=== PATIENT | male | born 1950 | race Caucasian/White ===

== ENCOUNTER → 2018-11-09 12:47 | Outpatient (CLI) | payer MEDICARE, SELFPAY | PROVIDERS: Visit Provider Physician Assistant | DX: R21 Rash and other nonspecific skin eruption (principal) | CPT/HCPCS: 87070; 87075; 87077; 87147; 87186; 87205; 87210 ==

== ENCOUNTER → 2019-03-13 11:10 | Outpatient (CLI) | payer MEDICARE, SELFPAY ==
--- NOTE | 2019-03-13 | DI.RAD.S_ITS ---
PROCEDURE: XR CHEST 2V INDICATIONS: CHRONIC COUGH TECHNIQUE: 2 views of the chest were acquired. COMPARISON: None. FINDINGS: Surgical changes and devices: None. Lungs and pleura: Lungs are clear. No pleural effusions or pneumothorax. Mediastinum: Mediastinal contours are normal. Heart size is normal. Bones and chest wall: No suspicious bony abnormalities. Soft tissues appear unremarkable. IMPRESSION: No acute disease. Dictated by: Augusto Torres M.D. on 03/13/2019 at 16:31 Approved by: Augusto Torres M.D. on 03/13/2019 at 16:33
== END ==
PROVIDERS: Visit Provider Internal Medicine
DX: R05 Cough (principal)
CPT/HCPCS: 71046

== ENCOUNTER → 2019-03-28 14:22 | Outpatient (ROUT) | payer MEDICARE, SELFPAY ==
[2019-03-28 14:44] LABS: Add Manual Diff / Slide Review NO; Appearance Urine UA CLEAR; Basophils Absolute Auto 0 /uL (0-100); Basophils Percent Auto 0.5 % (0-2); Bilirubin Urine UA NEGATIVE (NEGATIVE); Color Urine UA YELLOW; Eosinophils Absolute Auto 100 /uL (0-450); Eosinophils Percent Auto 3.5 % (2-4); Glucose Urine UA NEGATIVE (Negative); Hematocrit 44.8 % (41-53); Hemoglobin 15.5 g/dL (13.5-17.5); Ketones Urine UA NEGATIVE (NEGATIVE); Leukocyte Esterase Urine UA NEGATIVE (NEGATIVE); Lymphocytes Absolute Auto 1600 /uL (1100-4500); Lymphocytes Percent Auto 41.4 % (25-40); Mean Corpuscular HGB Conc 34.6 % (30-36); Mean Corpuscular Hemoglobin 35.3 PG (26-34); Monocytes Absolute Auto 500 /uL (0-900); Monocytes Percent Auto 13.8 % (3-14); Neutrophils Absolute Auto 1600 /uL (1500-7000); Neutrophils Percent Auto 40.8 % (50-75); Nitrite Urine UA NEGATIVE (Negative); Occult Blood Urine UA NEGATIVE (Negative); Platelet Count 181 X10^3/uL (150-400); Protein Urine UA NEGATIVE (Negative); Red Blood Cell Count 4.39 X10^6/uL (4.5-5.9); Red Cell Distribution Width 13.4 % (11.6-14.8); Specific Gravity Urine UA 1.015 (1.000-1.035); Urobilinogen Urine UA 0.2 E.U./dL (0.2); White Blood Cell Count 3.9 X10^3/uL (4.5-11.0)
[2019-03-28 14:52] LABS: Alanine Aminotransferase 67 IU/L (21-72); Albumin 4.7 g/dL (3.5-5.0); Albumin Globulin Ratio 1.7 (1.0-2.8); Alkaline Phosphatase 48 U/L (38-126); Aspartate Aminotransferase 42 IU/L (17-59); BUN Creatinine Ratio 24.3 (6-22); Bilirubin Total 0.9 mg/dL (0.2-1.3); Blood Urea Nitrogen 17 mg/dL (9-20); Calcium 10.2 mg/dL (8.4-10.2); Carbon Dioxide 29 mmol/L (22-32); Chloride 102 mmol/L (98-107); Cholesterol 160 mg/dL (140-199); Creatine Kinase 204 U/L (55-170); Estimated Glomerular Filt Rate > 60.0 mL/min (>60); Globulin 2.8 g/dL (1.7-4.1); Glucose 111 mg/dL (80-110); HDL Cholesterol 51 mg/dL (40-60); HEMOLYSIS < 15 (0-50); LDL Cholesterol Calculated 99 mg/dL (<100); Potassium 4.6 mmol/L (3.4-5.1); Sodium 142 mmol/L (137-145); Total Protein 7.5 g/dL (6.3-8.2); Triglycerides 49 mg/dL (35-150); Uric Acid 8.1 mg/dL (3.5-8.5)
[2019-03-28 14:55] LABS: RBC Urine 0-1/HPF (0-5/HPF); WBC Urine 0-1/HPF (0-5/HPF)
[2019-03-28 14:56] LABS: Bacteria Urine Occasional (0-1); Culture Indicated Urine Cult Not Indicated
[2019-03-28 15:03] LABS: Erythrocyte Sedimentation Rate 1 MM/HR (0-15)
[2019-03-28 15:21] LABS: TSH w/ Reflex to FT4 2.68 uIU/mL (0.47-4.68)
[2019-03-31 14:53] LABS: PSA Total 3.75 ng/mL (< 4.01)
[2019-04-02 07:35] LABS: Aldolase 5.3 U/L (< 8.2)
== END ==
PROVIDERS: Visit Provider Internal Medicine
DX: R51 Headache (principal); R13.10 Dysphagia, unspecified; R03.0 Elevated blood-pressure reading, without diagnosis of hypertension; I48.92 Unspecified atrial flutter; R25.2 Cramp and spasm; K60.2 Anal fissure, unspecified; M1A.9XX0 Chronic gout, unspecified, without tophus (tophi); Z13.220 Encounter for screening for lipoid disorders; Z12.5 Encounter for screening for malignant neoplasm of prostate; E88.89 Other specified metabolic disorders; R39.11 Hesitancy of micturition
CPT/HCPCS: 80053; 80061; 81001; 82085; 82550; 84153; 84154; 84443; 84550; 85025; 85651

== ENCOUNTER → 2019-05-30 18:20 | Outpatient (ROUT) | payer MEDICARE, SELFPAY | PROVIDERS: Visit Provider Internal Medicine | DX: N48.1 Balanitis (principal) | CPT/HCPCS: 87070; 87075; 87205 ==

== ENCOUNTER → 2019-11-20 11:43 | Outpatient (CLI) | payer MEDICARE, SELFPAY ==
--- NOTE | 2019-11-20 | DI.RAD.S_ITS ---
PROCEDURE: XR HAND LT 2V INDICATIONS: PAIN IN LEFT HAND TECHNIQUE: 2 views of the hand(s) acquired. COMPARISON: None. FINDINGS: Bones: No fractures or dislocations. Carpal bones are normally aligned. No suspicious bony lesions. Flexion of the left little finger. First CMC and triscaphe joint degeneration. Diffuse interphalangeal degenerative spurring and sclerosis. Soft tissues: No suspicious soft tissue calcifications. IMPRESSION: Diffuse degenerative changes as above. Flexion of the left little finger Dictated by: Augusto Torres M.D. on 11/20/2019 at 14:59 Approved by: Augusto Torres M.D. on 11/20/2019 at 15:02
--- NOTE | 2019-11-20 | DI.RAD.S_ITS ---
PROCEDURE: XR HAND RT 2V INDICATIONS: PAIN IN LEFT HAND TECHNIQUE: 2 views of the hand(s) acquired. COMPARISON: None. FINDINGS: Bones: No fractures or dislocations. Carpal bones are normally aligned. No suspicious bony lesions. Scattered degenerative subchondral sclerosis and spurring. First CMC and triscaphe joint degeneration. Punctate non-specific jessika-articular calcification at the fifth MCP joint. Marginal lucency projecting at the PIP joint of the little finger. Soft tissues: No suspicious soft tissue calcifications. IMPRESSION: Diffuse degenerative changes as above Marginal lucencies project at the little finger PIP joint Dictated by: Augusto Torres M.D. on 11/20/2019 at 15:02 Approved by: Augusto Torres M.D. on 11/20/2019 at 15:04
[2019-11-20 12:03] LABS: Bacteria Urine None Seen; RBC Urine None Seen (0-5/HPF)
[2019-11-20 13:38] LABS: Add Manual Diff / Slide Review NO; Basophils Absolute Auto 0 /uL (0-100); Basophils Percent Auto 0.7 % (0-2); Eosinophils Absolute Auto 100 /uL (0-450); Eosinophils Percent Auto 1.2 % (2-4); Hematocrit 44.2 % (41-53); Hemoglobin 15.7 g/dL (13.5-17.5); Lymphocytes Absolute Auto 1100 /uL (1100-4500); Lymphocytes Percent Auto 22.7 % (25-40); Mean Corpuscular HGB Conc 35.5 % (30-36); Mean Corpuscular Hemoglobin 35.7 PG (26-34); Mean Corpuscular Volume 100.6 fL (80-100); Monocytes Absolute Auto 700 /uL (0-900); Monocytes Percent Auto 12.9 % (3-14); Neutrophils Absolute Auto 3200 /uL (1500-7000); Neutrophils Percent Auto 62.5 % (50-75); Platelet Count 135 X10^3/uL (150-400); Red Blood Cell Count 4.39 X10^6/uL (4.5-5.9); Red Cell Distribution Width 13.1 % (11.6-14.8); White Blood Cell Count 5.1 X10^3/uL (4.5-11.0)
[2019-11-20 13:41] LABS: Alanine Aminotransferase 181 IU/L (<50); Albumin 5.1 g/dL (3.5-5.0); Albumin Globulin Ratio 1.6 (1.0-2.8); Alkaline Phosphatase 61 U/L (38-126); Appearance Urine UA CLEAR; Aspartate Aminotransferase 126 IU/L (17-59); BUN Creatinine Ratio 31.3 (6-22); Bilirubin Total 1.2 mg/dL (0.2-1.3); Bilirubin Urine UA NEGATIVE (NEGATIVE); Blood Urea Nitrogen 21 mg/dL (9-20); Calcium 9.9 mg/dL (8.4-10.2); Carbon Dioxide 26 mmol/L (22-32); Chloride 99 mmol/L (98-107); Cholesterol 168 mg/dL (140-199); Color Urine UA YELLOW; Creatine Kinase 267 U/L (55-170); Estimated Glomerular Filt Rate > 60.0 mL/min (>60); Globulin 3.2 g/dL (1.7-4.1); Glucose 95 mg/dL (80-110); Glucose Urine UA NEGATIVE (Negative); HDL Cholesterol 50 mg/dL (40-60); HEMOLYSIS < 15 (0-50); Ketones Urine UA 1+ (NEGATIVE); LDL Cholesterol Calculated 106 mg/dL (<100); Leukocyte Esterase Urine UA NEGATIVE (NEGATIVE); Nitrite Urine UA NEGATIVE (Negative); Occult Blood Urine UA NEGATIVE (Negative); Potassium 4.2 mmol/L (3.4-5.1); Protein Urine UA NEGATIVE (Negative); Sodium 140 mmol/L (137-145); Specific Gravity Urine UA 1.025 (1.000-1.035); Total Protein 8.3 g/dL (6.3-8.2); Triglycerides 58 mg/dL (35-150); Uric Acid 10.5 mg/dL (3.5-8.5); Urobilinogen Urine UA 0.2 E.U./dL (0.2)
[2019-11-20 13:55] LABS: Culture Indicated Urine Cult Not Indicated; Mucus Urine 1+ (Negative); Squamous Epithelial Cell Urine 0-1 /HPF (0-5/HPF); WBC Urine 0-1/HPF (0-5/HPF)
[2019-11-20 14:03] LABS: D Dimer < 200 ng/mL (<230)
[2019-11-20 14:06] LABS: Erythrocyte Sedimentation Rate 4 MM/HR (0-15)
[2019-11-20 14:12] LABS: C-Reactive Protein Quant 0.6 mg/dL (<1.0)
[2019-11-20 14:41] LABS: TSH w/ Reflex to FT4 2.13 uIU/mL (0.47-4.68)
--- NOTE | 2019-11-20 16:05 | DI.US.S_ITS ---
PROCEDURE: US PERIP VENOUS UP EXTREM LT INDICATIONS: PAIN IN LEFT HAND/LEG TECHNIQUE: Real-time imaging, as well as color and pulse Doppler interrogation, was performed of the left upper extremity deep veins from the inferior neck to the antecubital fossa. COMPARISON: [facility], , [facility] VENOUS LOW EXTREM BI, 11/20/2019, 17:21. FINDINGS: The internal jugular vein, visualized portions of the subclavian vein, axillary, and brachial veins are free of intraluminal thrombus. Where physically possible, the veins are normally compressible. Color and pulse Doppler demonstrate normal intraluminal flow, with expected phasicity and pulsatility. Superficial venous thrombosis can be seen within a vein that is likely a basilic tributary. IMPRESSION: Negative for deep venous thrombosis. Mild superficial venous thrombosis seen. Note: Concordant preliminary findings called to the voicemail of Melissa Dyer by the motor and generator assembler upon the completion of the examination at 5:42 PM on November 20, 2019. Dictated by: Elroy Gutiérrez M.D. on 11/20/2019 at 16:57 Approved by: Elroy Gutiérrez M.D. on 11/20/2019 at 16:59
--- NOTE | 2019-11-20 16:05 | DI.US.S_ITS ---
PROCEDURE: US PERIP VENOUS LOW EXTREM BI INDICATIONS: PAIN IN LEFT HAND/LEG TECHNIQUE: Real-time imaging, as well as color and pulse Doppler interrogation, were performed of the deep veins of both legs from the inguinal ligament to the popliteal fossa. COMPARISON: [facility], , PERIP VENOUS UP EXTREM LT, 11/20/2019, 17:04. FINDINGS: Right: The common femoral, femoral and popliteal veins are normally compressible, and free of intraluminal thrombus. Color and pulse Doppler demonstrate normal phasic intravascular flow. There is normal augmentation response to distal compression maneuver. Left: The common femoral, femoral and popliteal veins are normally compressible, and free of intraluminal thrombus. Color and pulse Doppler demonstrate normal phasic intravascular flow. There is normal augmentation response to distal compression maneuver. IMPRESSION: Negative for deep venous thrombosis. Dictated by: Elroy Gutiérrez M.D. on 11/20/2019 at 16:59 Approved by: Elroy Gutiérrez M.D. on 11/20/2019 at 16:59
[2019-11-22 01:44] LABS: PSA Free % 35.9 % (.); PSA, Total 3.7 ng/mL (0.0-4.0)
== END ==
PROVIDERS: PCP Internal Medicine; Referring Provider Internal Medicine; Visit Provider Internal Medicine
DX: R25.2 Cramp and spasm (principal); M79.642 Pain in left hand; M79.604 Pain in right leg; M79.605 Pain in left leg
CPT/HCPCS: 73120; 80053; 80061; 81001; 82085; 82550; 84153; 84154; 84443; 84550; 85025; 85379; 85651; 86140; 93970; 93971

== ENCOUNTER → 2020-01-08 12:03 | Outpatient (CLI) | payer MEDICARE, SELFPAY ==
[2020-01-08 14:11] LABS: Alanine Aminotransferase 45 IU/L (<50); Albumin 4.9 g/dL (3.5-5.0); Albumin Globulin Ratio 1.6 (1.0-2.8); Alkaline Phosphatase 54 U/L (38-126); Aspartate Aminotransferase 36 IU/L (17-59); BUN Creatinine Ratio 34.9 (6-22); Blood Urea Nitrogen 30 mg/dL (9-20); Carbon Dioxide 28 mmol/L (22-32); Chloride 103 mmol/L (98-107); Creatine Kinase 130 U/L (55-170); Estimated Glomerular Filt Rate > 60.0 mL/min (>60); Gamma Glutamyl Transpeptidase 38 U/L (15-73); Glucose 109 mg/dL (80-110); HEMOLYSIS < 15 (0-50); Potassium 4.5 mmol/L (3.4-5.1); Sodium 140 mmol/L (137-145); Total Protein 7.9 g/dL (6.3-8.2); Uric Acid 10.4 mg/dL (3.5-8.5)
[2020-01-10 23:08] LABS: Aldolase 5.9 U/L (3.3-10.3)
== END ==
PROVIDERS: PCP Internal Medicine; Referring Provider Internal Medicine; Visit Provider Internal Medicine
DX: R74.9 Abnormal serum enzyme level, unspecified (principal); R74.0 Nonspecific elevation of levels of transaminase and lactic acid dehydrogenase [LDH]; M10.071 Idiopathic gout, right ankle and foot
CPT/HCPCS: 36415; 80053; 82085; 82550; 82977; 84550

== ENCOUNTER → 2020-02-22 12:22 | Outpatient (CLI) | payer MEDICARE, SELFPAY ==
--- NOTE | 2020-02-22 12:27 | DI.RAD.S_ITS ---
PROCEDURE: XR FOOT LT MIN 3V INDICATIONS: Lt foot pain TECHNIQUE: 3 views of the foot were acquired. COMPARISON: None. FINDINGS: Bones: No fractures or dislocations. No suspicious bony lesions. Soft tissues: No tibiotalar joint effusion. Achilles tendon appears normal. There appears to be soft tissue swelling over the medial aspect of the 1st metatarsal head, but there is no fracture or foreign body seen. IMPRESSION: Blunt trauma injury with swelling 1st MTP joint area, without fracture or foreign body seen. Dictated by: Chase Byrd M.D. on 02/22/2020 at 13:59 Approved by: Chase Byrd M.D. on 02/22/2020 at 13:59
== END ==
PROVIDERS: PCP Internal Medicine; Referring Provider Internal Medicine; Visit Provider Internal Medicine
DX: M79.672 Pain in left foot (principal); S99.922A Unspecified injury of left foot, initial encounter; M79.89 Other specified soft tissue disorders; W20.8XXA Other cause of strike by thrown, projected or falling object, initial encounter
CPT/HCPCS: 73630

== ENCOUNTER → 2020-04-08 10:28 | Outpatient (CLI) | payer MEDICARE, SELFPAY ==
[2020-04-08 12:55] LABS: BUN Creatinine Ratio 27.2 (6-22); Blood Urea Nitrogen 22 mg/dL (9-20); Calcium 9.8 mg/dL (8.4-10.2); Carbon Dioxide 27 mmol/L (22-32); Chloride 105 mmol/L (98-107); Estimated Glomerular Filt Rate > 60.0 mL/min (>60); Glucose 95 mg/dL (80-110); HEMOLYSIS < 15 (0-50); Potassium 4.6 mmol/L (3.4-5.1); Sodium 142 mmol/L (137-145); Uric Acid 6.4 mg/dL (3.5-8.5)
== END ==
PROVIDERS: PCP Internal Medicine; Referring Provider Internal Medicine; Visit Provider Internal Medicine
DX: I10 Essential (primary) hypertension (principal); M1A.0720 Idiopathic chronic gout, left ankle and foot, without tophus (tophi)
CPT/HCPCS: 36415; 80048; 84550

== ENCOUNTER → 2020-10-31 10:47 | Outpatient (CLI) | payer MEDICARE, SELFPAY ==
[2020-10-31 12:10] LABS: Alanine Aminotransferase 30 IU/L (<50); Albumin 4.5 g/dL (3.5-5.0); Albumin Globulin Ratio 1.6 (1.0-2.8); Alkaline Phosphatase 54 U/L (38-126); Aspartate Aminotransferase 31 IU/L (17-59); BUN Creatinine Ratio 29.9 (6-22); Bilirubin Total 0.9 mg/dL (0.2-1.3); Blood Urea Nitrogen 26 mg/dL (9-20); Calcium 9.8 mg/dL (8.4-10.2); Carbon Dioxide 25 mmol/L (22-32); Chloride 103 mmol/L (98-107); Cholesterol 138 mg/dL (140-199); Estimated Glomerular Filt Rate > 60.0 mL/min (>60); Globulin 2.8 g/dL (1.7-4.1); Glucose 93 mg/dL (80-110); HDL Cholesterol 51 mg/dL (40-60); HEMOLYSIS < 15 (0-50); LDL Cholesterol Calculated 76 mg/dL (<100); Potassium 4.4 mmol/L (3.4-5.1); Sodium 139 mmol/L (137-145); Total Protein 7.3 g/dL (6.3-8.2); Triglycerides 55 mg/dL (35-150)
[2020-11-01 08:13] LABS: PSA Free % 36.7 % (.); PSA, Total 3.6 ng/mL (0.0-4.0)
== END ==
PROVIDERS: PCP Internal Medicine; Referring Provider Internal Medicine; Visit Provider Internal Medicine
DX: I10 Essential (primary) hypertension (principal); E78.5 Hyperlipidemia, unspecified; Z12.5 Encounter for screening for malignant neoplasm of prostate
CPT/HCPCS: 36415; 80053; 80061; 84153; 84154; G0103

== ENCOUNTER → 2023-01-11 08:04 | Outpatient (CLI) | payer MEDICARE, SELFPAY ==
--- NOTE | 2023-01-11 | DI.ECHO.S_ITS ---
[facility] +---------+ [facility] +---------+ : : [address] : : : : [id number] : : : : Phone: [phone] Echocardiogram Report + + :Name: KIMBERLEE HOUSE Study Date: 01/11/2023 Height: 68.5 in: :[facility] ReadingLocation: Weight: 205 lb : : Gender: Male BSA: 2.1 m2 : :: 1950 Age: 72 yrs BP: 123/71 mmHg: :Reason For Study: DYSPNEA ON EXERTION : :Ordering Physician: GEOVANY, : :TRICE Performed By: Madie Mayorga : :Referring: TRICE ARMENTA : + + Interpretation Summary The ejection fraction is estimated to be 60-65%. Diastolic parameters suggest probable normal left ventricular diastolic function and normal filling pressures. The right ventricle is normal in size and function. There is mild mitral regurgitation. There is mild aortic regurgitation. There is mild tricuspid regurgitation. The right ventricular systolic pressure is estimated to be at least 32 mmHg based on an estimated right atrial pressure of 3 mm Hg. Procedure: A two-dimensional transthoracic echocardiogram with color flow and Doppler was performed. The study quality was technically adequate. There is no prior echocardiogram noted for this patient. The patient was in sinus rhythm with heart rates between 67-76 bpm during the exam. Left Ventricle: The left ventricle is normal in size and wall thickness. The ejection fraction is estimated to be 60-65%. Diastolic parameters suggest probable normal left ventricular diastolic function and normal filling pressures. Right Ventricle: The right ventricle is normal in size and function. Atria: The left atrial size is normal. Right atrial size is normal. There is no Doppler evidence for an interatrial shunt. Mitral Valve: The mitral valve is normal. There is mild mitral regurgitation. Aortic Valve: The aortic valve is trileaflet. The aortic valve opens well. There is no aortic valve stenosis. There is mild aortic regurgitation. Tricuspid Valve: The tricuspid valve is normal in structure and function. There is mild tricuspid regurgitation. The right ventricular systolic pressure is estimated to be at least 32 mmHg based on an estimated right atrial pressure of 3 mm Hg. Pulmonic Valve: The pulmonic valve leaflets are thin and pliable; valve motion is normal. There is no pulmonic valvular regurgitation. Great Vessels: The aortic root is normal size. The dimensions of the ascending aorta are normal. The IVC is of normal diameter and collapses greater than 50% with a sniff. This suggests a low right atrial pressure of 3 mm Hg. Pericardium/ Pleura There is no pericardial effusion. There is no pleural effusion. MMode/2D Measurements & Calculations LVIDd: 4.4 cm LVOT diam: 2.1 cm LVIDs: 3.3 cm Ao root diam: 3.8 cm FS: 25.8 % asc Aorta Diam: 3.3 cm EPSS: 0.51 cm Ao Arch Diam (Prox Trans): 3.3 cm IVSd: 0.83 cm LVPWd: 0.86 cm LV grajeda. diameter/BSA (cm/m^2): 2.1 LV sys. diameter/BSA (cm/m^2): 1.6 LA A2 area: 16.5 cm2 RA long axis: 5.3 cm LA A4 area: 17.8 cm2 RA area: 15.2 cm2 LA length (vol): 6.1 cm RA vol: 36.7 ml LA vol: 40.8 ml RA : 17.6 ml/m2 LA vol index: 19.6 ml/m2 IVC diam: 2.0 cm RVD1 (basal): 4.2 cm TAPSE: 2.4 cm Doppler Measurements & Calculations Ao V2 max: 131.0 cm/sec LVOT Max Lonnie: 103.1 cm/sec Ao V2 mean: 93.9 cm/sec LV V1 max P.3 mmHg Ao max P.9 mmHg LV V1 VTI: 23.0 cm Ao mean P.9 mmHg LAQUITA(I,D): 2.9 cm2 Ao V2 VTI: 27.1 cm LAQUITA(V,D): 2.7 cm2 sev ratio: 0.85 LAQUITA indexed to BSA (cm^2/m^2): 1.4 AI P1/2t: 542.0 msec AI dec slope: 217.2 cm/sec2 MV E max lonnie: 64.8 cm/sec TR max lonnie: 266.8 cm/sec MV A max lonnie: 71.9 cm/sec TR max P.5 mmHg MV E/A: 0.90 PA V2 max: 80.3 cm/sec Med Peak E' Lonnie: 8.0 cm/sec PA V2 mean: 57.8 cm/sec E/E' med: 8.1 PA mean P.5 mmHg Lat Peak E' Lonnie: 9.7 cm/sec PA pr(Accel): 24.2 mmHg E/E' lat: 6.7 E/e' average: 7.4 MV dec time: 0.24 sec SV(LVOT): 78.4 ml Reading Physician:02:21 PM
== END ==
PROVIDERS: PCP Internal Medicine; Referring Provider Internal Medicine; Visit Provider Internal Medicine
DX: I08.3 Combined rheumatic disorders of mitral, aortic and tricuspid valves (principal); R06.09 Other forms of dyspnea
CPT/HCPCS: 93306

== ENCOUNTER → 2025-01-21 16:18 | Outpatient (CLI) | payer MEDICARE, SELFPAY ==
--- NOTE | 2025-01-21 16:21 | DI.US.S_ITS ---
PROCEDURE: US RENAL COMPLETE INDICATIONS: CHRONIC KIDNEY DISEASE TECHNIQUE: Real-time scanning was performed of the kidneys and bladder, with image documentation. COMPARISON: None. FINDINGS: Kidneys: Kidneys are normal in size. Right kidney measures 11 cm long; left kidney measures 11 cm long. Right renal cortical thickness is 1.5 cm; left renal cortical thickness is 1.4 cm. Renal cortical echotexture is normal. No hydronephrosis or nephrolithiasis. No suspicious solid mass lesions. Bladder: Pre-void bladder volume is 217 mL. Post-void residual is 78 mL. Pre- void images demonstrate no intraluminal masses or stones. On pre-void images, no ureteral jets are noted with color Doppler interrogation. (Of note, ureteral jets may not be detectable in up to 25% of cases due to insufficient differences in specific gravity between ureteral and bladder urine). The prostate gland is enlarged with compression upon the base of the bladder. Miscellaneous: No free pelvic fluid. IMPRESSION: Essentially unremarkable exam of the kidneys and bladder. Dictated by: Rosita Johnson M.D. on 01/22/2025 at 8:37 Approved by: Rosita Johnson M.D. on 01/22/2025 at 9:07
== END ==
PROVIDERS: PCP Internal Medicine; Referring Provider Internal Medicine; Visit Provider Internal Medicine
DX: N18.31 Chronic kidney disease, stage 3a (principal)
CPT/HCPCS: 76770